=== PATIENT | male | born 1990 | race Caucasian/White ===

== ENCOUNTER 2024-09-27 09:41 | Outpatient (CLI) | payer BC, SELFPAY ==
--- NOTE | ~2024-09-27 | US_ITS ---
EXAMINATION: US scrotum doppler DATE: 09/27/2024 10:20 INDICATION: Scrotal pain TECHNIQUE: Testicular sonogram utilizing grayscale and Doppler COMPARISON: None. FINDINGS: The right testis measures 4.9 x 2.3 x 3.2 cm. The left testis measures 4.4 x 2.4 x 3.0 cm. Symmetric normal grayscale appearance to both testes. There is normal vascular flow to both testes. The right e pididymis is normal with normal vascular flow. The left epididymis is normal with normal vascular anali w. There is no varicocele or hydrocele. IMPRESSION: 1. Normal scrotal ultrasound. Reviewed, dictated and finalized at location A. [employer]
== END 2024-09-27 09:42 | disposition home or self-care (01) ==
LOC: MICIMG 09:42
PROVIDERS: PCP Internal Medicine; Visit Provider Internal Medicine
DX: N50.82 Scrotal pain (principal)
CPT/HCPCS: 76870; 93976